=== PATIENT | female | born 1975 | race Caucasian/White ===

== ENCOUNTER 2024-10-16 06:28 | Day surgery (SDC) | payer BC, SELFPAY | END 2024-10-16 12:36 | disposition home or self-care (01) | LOC: GI 06:28 | PROVIDERS: ATTENDING PHYSICIAN Internal Medicine | DX: Z12.11 Encounter for screening for malignant neoplasm of colon (principal); K64.8 Other hemorrhoids | CPT/HCPCS: G0121 ==

== ENCOUNTER → 2024-11-05 12:54 | Outpatient (REF) | payer BC, SELFPAY | LOC: HWWDC 12:54 | PROVIDERS: ATTENDING PHYSICIAN Nurse Practitioner Adult Health | DX: Z12.31 Encounter for screening mammogram for malignant neoplasm of breast (principal) | CPT/HCPCS: 77063; 77067 ==